=== PATIENT | female | born 1970 | race Caucasian/White ===

== ENCOUNTER 2017-10-19 15:18 | Emergency (ER) | payer BC ==
[2017-10-19 16:23] VITALS: BP 124/77
--- NOTE | 2017-10-19 16:37 | UC ---
Ear Complaint HPI - History of Current Complaint Chief Complaint: UCEye Stated Complaint: RIGHT EYE ISSUE Time Seen by Provider: 10/19/17 16:30 Hx Last Menstrual Period: NONE - Allergies/Home Medications Allergies/Adverse Reactions: Allergies Allergy/AdvReac Type Severity Reaction Status Date / Time Amoxicillin [From Augmentin] AdvReac Swelling Verified 10/19/17 16:23 Clavulanic Acid AdvReac Swelling Verified 10/19/17 16:23 [From Augmentin] Home Medications: Home Medications Pediatric Multiple Vitamins W/ [Multivitamin Plus Iron Ch 18 mg] 1 chw PO DAILY 10/19/17 [History Confirmed 10/19/17] PMH/Surg Hx/FS Hx/Imm Hx - Surgical History Surgical History: Yes Surgery Procedure, Year, and Place: hysterectomy, gallbladder removed - Family History Known Family History: Positive: None - Social History Alcohol Use: Occasionally Substance Use Type: None Smoking Status (MU): Never Smoked Tobacco - Immunization History Most Recent Tetanus Shot: 01/23/14 Physical Exam Vital Signs: Initial Vital Signs Temp 98.6 F 10/19/17 16:16 Pulse 60 10/19/17 16:16 Resp 12 10/19/17 16:16 BP 124/77 10/19/17 16:16 Pulse Ox 100 10/19/17 16:16 Ear Complaint Course/Dx - Course Course Of Treatment: hx obtained, exam performed ,meds reviewed, given abx for prophylaxic prevention - Differential Dx/Diagnosis Provider Diagnoses: chemical irritaion of the left eye Discharge - Discharge Plan Condition: Stable Disposition: HOME Patient Education Materials: [employer] [facility] (ED) Referrals: Kiran Baldwin MD [Primary Care Provider] - Additional Instructions: 1. use the cream three times a day for 3 days. 2. FOllow up with any worsening symtpoms.
== END 2017-10-19 16:40 | disposition home or self-care (01) ==
LOC: UCCORT 15:18
DX: H57.8 Other specified disorders of eye and adnexa (principal); Z90.710 Acquired absence of both cervix and uterus; Z90.49 Acquired absence of other specified parts of digestive tract; Z88.1 Allergy status to other antibiotic agents
CPT/HCPCS: 99212; G0463

== ENCOUNTER 2017-11-27 17:17 | Emergency (ER) | payer BC ==
[2017-11-27 19:34] VITALS: BP 126/75
--- NOTE | 2017-11-27 20:03 | UC ---
FLU HPI - HPI Summary HPI Summary: 47 y/o female presents to the urgent care c/o sore throat, [place], fatigue, mild sinus congestion w/ clear nasal discharge. Pain w/ swallowing is 4/10. 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 Pt denies fever, but has felt chills at times. Pt denies cough SOB, chest pain, abdominal pain, N/V/D - History of Current Complaint Chief Complaint: UCGeneralIllness Stated Complaint: HEADACHE,SORE THROAT,FATIGUE Time Seen by Provider: 11/27/17 19:29 Hx Obtained From: Patient Hx Last Menstrual Period: NONE Onset/Duration: Gradual Onset, Lasting Days - 1 day, Still Present, Worse Since - today Severity Currently: Mild Severity Initially: Moderate Pain Intensity: 4 Pain Scale Used: 0-10 Numeric Associated Signs & Symptoms: Positive: Fever, Myalgia, Sore Throat, Nasal Congestion - clear nasal discharge, Headache - Risk Factors Influenza Risk Factors: Negative - Allergy/Home Medications Allergies/Adverse Reactions: Allergies Allergy/AdvReac Type Severity Reaction Status Date / Time MS Amoxicillin AdvReac Swelling Verified 11/27/17 19:34 [From Augmentin] MS Clavulanic Acid AdvReac Swelling Verified 11/27/17 19:34 [From Augmentin] Home Medications: Home Medications busPIRone TAB* [Buspar TAB *] 15 mg PO DAILY 11/27/17 [History Confirmed ] PMH/Surg Hx/FS Hx/Imm Hx Previously Healthy: Yes Other GI/ History: Colitis Psychological History: Anxiety - Surgical History Surgical History: Yes Surgery Procedure, Year, and Place: hysterectomy, gallbladder removed - Family History Known Family History: Positive: Diabetes, Respiratory Disease - COPD Negative: Hypertension - Social History Occupation: Employed Full-time Lives: With Family Alcohol Use: Occasionally Substance Use Type: None Smoking Status (MU): Never Smoked Tobacco - Immunization History Most Recent Tetanus Shot: 01/23/14 Review of Systems Constitutional: Fever, Chills, Fatigue Skin: Negative Eyes: Negative ENT: Sore Throat, Nasal Discharge, Sinus Congestion Respiratory: Negative Cardiovascular: Negative Gastrointestinal: Negative Genitourinary: Negative Motor: Negative Neurovascular: Negative Musculoskeletal: Negative Neurological: Headache Psychological: Negative Is Patient Immunocompromised?: No All Other Systems Reviewed And Are Negative: Yes Physical Exam Triage Information Reviewed: Yes Vital Signs: Initial Vital Signs Temp 97.8 F 11/27/17 19:30 Pulse 58 11/27/17 19:30 Resp 14 11/27/17 19:30 BP 126/75 11/27/17 19:30 Pulse Ox 100 11/27/17 19:30 - Additional Comments VITAL SIGNS: Reviewed. GENERAL: Patient is a well developed and nourished female who is sitting comfortable in the examining table. Patient is not in any acute respiratory distress. HEAD AND FACE: No signs of trauma. No ecchymosis, hematomas or skull depressions. No sinus tenderness. edematous erythematous nasal mucosa with yellowish discharge, EYES: PERRLA, EOMI x 2, No injected conjunctiva, clear watery eyes, no nystagmus. No photophobia. EARS: Hearing grossly intact. Ear canals and tympanic membranes are within normal limits. MOUTH: Positive pharynx with erythema, no exudates,no palatal petechiae. no B/L tonsillar enlargement Uvula in midline. NECK: Supple, trachea is midline, Positive anterior cervical lymphadenopathy, no JVD, no carotid bruit, no c-spine tenderness, neck with full ROM. No meningeal signs, no Kernig's or brudzinskis signs. CHEST: Symmetric, no tenderness at palpation LUNGS: Clear to auscultation bilaterally. No wheezing or crackles. CVS: Regular rate and rhythm, S1 and S2 present, no murmurs or gallops appreciated. ABDOMEN: Soft, non-tender. No signs of distention. No rebound no guarding, and no masses palpated. Bowel sounds are normal. EXTREMITIES: FROM in all major joints, no edema, no cyanosis or clubbing. NEURO: Alert and oriented x 3. No acute neurological deficits. Speech is normal and follows commands. SKIN: Dry and warm Flu Course/Dx - Course Course Of Treatment: 47 y/o female presents to the urgent care c/o sore throat, [place], fatigue, mild sinus congestion w/ clear nasal discharge. Pain w/ swallowing is 4/10. 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 Pt denies fever, but has felt chills at times. Pt denies cough SOB, chest pain, abdominal pain, N/V/D. Hx obtained. Pt w/ URI on examination. Influenza A&B ordered: result: negative. Pt Rx ibuprofen PO to alleviates symptoms. Advised on hand washing. Pt advised to rest, increase fluid intake, eat well and avoid strenuous exercise. If symptoms do not improve or worsen advised to return to the urgent care or f/u with her PCP for further evaluation and treatment. Pt understood and agreed with plan of care. - Differential Dx/Diagnosis Differential Diagnosis/HQI/PQRI: Bronchitis, Influenza, Pneumonia, Upper Respiratory Infection Provider Diagnoses: 1- Upper respiratory infection Discharge - Discharge Plan Condition: Stable Disposition: HOME Prescriptions: Ibuprofen TAB* [Motrin TAB* 600 MG] 600 mg PO Q6H PRN #20 tab PRN Reason: Fever Patient Education Materials: Upper Respiratory Infection (ED) Referrals: Kiran Baldwin MD [Primary Care Provider] - If Needed Additional Instructions: 1-Please take ibuprofen PO q6-8hrs prn as instructed after meals to alleviate pain and swelling. Increase fluid intake, eat well, rest and avoid strenuous exercise 2-If symptoms do not improve or worsen please return to the urgent care or f/u with your PCP for further evaluation and treatment.
== END 2017-11-27 20:34 | disposition home or self-care (01) ==
LOC: UCCORT 17:17
DX: J06.9 Acute upper respiratory infection, unspecified (principal)
CPT/HCPCS: 87502; 99211; G0463

== ENCOUNTER 2018-02-03 07:02 | Emergency (ER) | payer BC ==
[2018-02-03 07:20] VITALS: BP 124/79
--- NOTE | 2018-02-03 07:39 | UC ---
Respiratory Complaint HPI - HPI Summary HPI Summary: cough x 1 week cough is non-productive and dry , chest congestion , + nasal congestion , pnd no fever, no chills, no sob - History of Current Complaint Chief Complaint: UCRespiratory Stated Complaint: COUGH Time Seen by Provider: 02/03/18 07:24 Hx Obtained From: Patient Hx Last Menstrual Period: NONE Onset/Duration: Gradual Onset, Lasting Weeks - 7, Still Present Timing: Constant Severity Initially: Moderate Severity Currently: Moderate Pain Intensity: 3 Character: Cough: Nonproductive Aggravating Factors: Deep Breaths Associated Signs And Symptoms: Positive: URI, Nasal Congestion. Negative: Dyspnea, Fever, Chills, Wheezing, Hemoptysis, Dizziness, Calf Pain, Calf Swelling, Edema, Hoarseness, Sinus Discomfort - Allergies/Home Medications Allergies/Adverse Reactions: Allergies Allergy/AdvReac Type Severity Reaction Status Date / Time amoxicillin [From Augmentin] Allergy Swelling Verified 02/03/18 07:24 clavulanic acid Allergy Swelling Verified 02/03/18 07:24 [From Augmentin] Home Medications: Home Medications Escitalopram Oxalate [Lexapro 20 mg] 20 mg PO DAILY 02/03/18 [History Confirmed 02/03/18] PMH/Surg Hx/FS Hx/Imm Hx Psychological History: Anxiety, Depression - Surgical History Surgical History: Yes Surgery Procedure, Year, and Place: hysterectomy, gallbladder removed - Family History Known Family History: Positive: None, Diabetes, Respiratory Disease - COPD Negative: Hypertension - Social History Alcohol Use: Rare Substance Use Type: None Smoking Status (MU): Never Smoked Tobacco - Immunization History Most Recent Tetanus Shot: 01/23/14 Review of Systems Constitutional: Negative Skin: Negative Eyes: Negative ENT: Nasal Discharge Respiratory: Cough Cardiovascular: Negative Gastrointestinal: Negative Is Patient Immunocompromised?: No All Other Systems Reviewed And Are Negative: Yes Physical Exam Triage Information Reviewed: Yes Appearance: Well-Appearing, No Pain Distress, Well-Nourished Vital Signs: Initial Vital Signs Temp 98.7 F 02/03/18 07:14 Pulse 57 02/03/18 07:14 Resp 59 02/03/18 07:14 BP 124/79 02/03/18 07:14 Pulse Ox 100 02/03/18 07:14 Vital Signs Reviewed: Yes Eyes: Positive: Conjunctiva Clear ENT: Positive: Normal ENT inspection, Hearing grossly normal, Pharynx normal Neck: Positive: Supple, Nontender, No Lymphadenopathy Respiratory: Positive: Chest non-tender, Lungs clear, Normal breath sounds Cardiovascular: Positive: RRR, No Murmur, Pulses Normal Skin Exam: Normal UC Diagnostic Evaluation - Laboratory O2 Sat by Pulse Oximetry: 100 Respiratory Course/Dx - Differential Dx/Diagnosis Provider Diagnoses: bronchitis Discharge - Sign-Out/Discharge Documenting (check all that apply): Discharge/Admit/Transfer - Discharge Plan Condition: Stable Disposition: HOME Prescriptions: Codeine Phosphate/Guaifenesin [Cheratussin AC] 10 ml PO Q8H #120 ml MDD 30 ml Patient Education Materials: Acute Bronchitis (ED) Referrals: Kiran Baldwin MD [Primary Care Provider] - If Needed - Billing Disposition and Condition Condition: STABLE Disposition: HOME
== END 2018-02-03 07:37 | disposition home or self-care (01) ==
LOC: UCCORT 07:02
DX: J40 Bronchitis, not specified as acute or chronic (principal); Z88.3 Allergy status to other anti-infective agents
CPT/HCPCS: 99212; G0463

== ENCOUNTER 2018-05-30 07:00 | Emergency (ER) | payer BC ==
[2018-05-30 07:16] VITALS: BP 111/71
--- NOTE | 2018-05-30 07:17 | UC ---
Neck Pain HPI - HPI Summary HPI Summary: The patient is a 47-year-old female that presents here for evaluation of left lateral neck pain. She states that she has had trouble with her neck for years. She remembers missing school as a young teenager due to neck pain. He denies any history of injuries. Her neck pain is always located on the left side in the trapezius. When her pain acts up she has decreased range of motion. She has never been seen by a physician for neck pain. She states over the past 5-6 weeks for neck pain has been worsening. She hasn't appointment to see her primary care physician Friday of next week. Her pain got progressively worse the last few days and she decided to get checked here. In addition to the trapezius pain she has pain now shooting down towards her left scapula. She denies any numbness and tingling in her arms. The pain does not radiate down her arms. She has taken some ibuprofen for her symptoms. This causes mild improvement of her symptoms - History of Current Complaint Chief Complaint: UCUpperExtremity Stated Complaint: NECK COMPLAINT Time Seen by Provider: 05/30/18 07:11 Hx Obtained From: Patient Hx Last Menstrual Period: NONE Onset/Duration Of Injury/Symptoms: Weeks Mechanism Of Injury: No Known Trauma Timing: Intermittent Episodes - weeks Onset/Duration: Gradual Onset, Worse Since - 5-6 weeks Severity: Moderate Pain Intensity: 7 Pain Scale Used: 0-10 Numeric Location: Discrete At: - left trap Character: Aching, Stiff, Spasmotic, Throbbing Aggravating Factors: Position Alleviating Factors: Position, OTC Meds Associated Signs & Symptoms: Positive: Negative Head: 1 - pain here 2 - radiates here - Allergies/Home Medications Allergies/Adverse Reactions: Allergies Allergy/AdvReac Type Severity Reaction Status Date / Time amoxicillin [From Augmentin] Allergy Swelling Verified 05/30/18 07:08 clavulanic acid Allergy Swelling Verified 05/30/18 07:08 [From Augmentin] PMH/Surg Hx/FS Hx/Imm Hx Previously Healthy: Yes - Surgical History Surgical History: Yes Surgery Procedure, Year, and Place: hysterectomy, gallbladder removed - Family History Known Family History: Positive: Diabetes, Respiratory Disease - COPD Negative: Hypertension - Social History Alcohol Use: Rare Substance Use Type: None Smoking Status (MU): Never Smoked Tobacco - Immunization History Most Recent Tetanus Shot: 01/23/14 Review Of Systems Constitutional: Positive: Negative Skin: Positive: Negative Eyes: Positive: Negative ENT: Positive: Negative Respiratory: Positive: Negative Cardiovascular: Positive: Negative Gastrointestinal: Positive: Negative Genitourinary: Positive: Negative Musculoskeletal: Positive: Arthralgia, Myalgia Neurological: Positive: Negative Psychological: Positive: Negative All Other Systems Reviewed And Are Negative: Yes Physical Exam Triage Information Reviewed: Yes Appearance: Well-Appearing, No Pain Distress, Well-Nourished Vital Signs: Initial Vital Signs Temp 98.1 F 05/30/18 07:09 Pulse 60 05/30/18 07:09 Resp 16 05/30/18 07:09 BP 111/71 05/30/18 07:09 Pulse Ox 100 05/30/18 07:09 Vital Signs Reviewed: Yes Eyes: Positive: Conjunctiva Clear ENT: Positive: Hearing grossly normal. Negative: Pharyngeal erythema, Nasal congestion, Nasal drainage, Trismus, Muffled voice, Hoarse voice Neck: Positive: No Lymphadenopathy. Negative: Supple, Nontender Respiratory: Positive: Lungs clear, Normal breath sounds, No respiratory distress, No accessory muscle use Cardiovascular: Positive: RRR, No Murmur Abdomen Description: Positive: Nontender Musculoskeletal: Positive: ROM Intact, No Edema Neurological: Positive: Alert Psychological Exam: Normal Skin Exam: Normal Diagnostics - Radiology No standard instances Xray Interpretation: No Acute Changes - MILD DEGENERATIVE DISC DISEASE AND OSTEOARTHRITIS MOST PRONOUNCED AT C6-C7. Radiology Interpretation Completed By: Radiologist Neck Pain Course/Dx - Differential Dx/Diagnosis Provider Diagnoses: cervical/left trapzius strain Discharge - Sign-Out/Discharge Documenting (check all that apply): Patient Departure - Discharge Plan Condition: Stable Disposition: HOME Patient Education Materials: Cervical Strain (ED), Soft Cervical Collar (ED) Referrals: Kiran Baldwin MD [Primary Care Provider] - As Soon As Possible Additional Instructions: ibuprofen 200mg 3 pills upto 4x day with food as needed soft cervical collar PT consult - Billing Disposition and Condition Condition: STABLE Disposition: Home
[2018-05-30] MEDS ORDERED: Ibuprofen TAB* 600 MG PO ONE (07:26)
--- NOTE | 2018-05-30 07:49 | RAD ---
HISTORY: acute worsening of chronic neck pain COMPARISONS: None VIEWS: 5, Frontal, lateral, open-mouth odontoid, and bilateral oblique views of the cervical spine. FINDINGS: The cervical spine is visualized from the skull base through T1. ALIGNMENT: The alignment is normal. VERTEBRAL BODIES: The odontoid process is intact. The atlantoaxial intervals are symmetric. There is mild anterolateral marginal osteophyte formation at C6-C7. JOINTS: There is mild uncovertebral and facet osteoarthritis, without osseous neural foraminal narrowing on the oblique views. INTERVERTEBRAL DISCS: There is diffuse loss of intervertebral disc height, most pronounced at C6-C7.. SOFT TISSUE: The prevertebral soft tissues are normal. OTHER: The skull base is normal. The lung apices are clear. IMPRESSION: MILD DEGENERATIVE DISC DISEASE AND OSTEOARTHRITIS MOST PRONOUNCED AT C6-C7.
== END 2018-05-30 08:06 | disposition home or self-care (01) ==
LOC: UCCORT 07:00
DX: S46.812A Strain of other muscles, fascia and tendons at shoulder and upper arm level, left arm, initial encounter (principal); S16.1XXA Strain of muscle, fascia and tendon at neck level, initial encounter; X58.XXXA Exposure to other specified factors, initial encounter; Y93.9 Activity, unspecified; Y92.9 Unspecified place or not applicable; Z88.0 Allergy status to penicillin; Z88.8 Allergy status to other drugs, medicaments and biological substances
CPT/HCPCS: 72050; 99213; A9270-GY; G0463

== ENCOUNTER 2018-06-25 17:22 | Emergency (ER) | payer BC ==
--- OUTSIDE RECORDS SUMMARY | 2018-06-25 17:28 | XMS REPORT ---
:1970 External Reference #:[id number] Author Organization [facility] Address [address] [place] [address] Phone [phone] Care Team Providers Name Role Phone HCP given Primary Care Physician Unavailable Payers Type Date Identification Numbers Payment Provider Subscriber Commercial Effective: Policy Number: Yulisa Stiles 2017 [id number] Ind/Ppo/Hmo/Pos Group Name: [id number] [address] [address] PayID: [id number] ALINA Adames [id number] Problems Date Description Provider Status Onset: 04/16/2011 Dysthymia Kiran Baldwin M.D. Active Onset: 07/04/2015 Dysthymic disorder Kiran Baldwin M.D. Active Onset: 07/04/2015 Anxiety state Kiran Baldwin M.D. 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 Cigarette Use Tobacco Of Any Kind Denies Use Cigarette Use Denies Cigarette Use ETOH Use Rare Alcohol Use Recreational Drug Use Never Used Drugs Smoking Patient has never smoked Daily Caffeine Consumes on average 2 cups of coffee per day Daily Caffeine Consumes on average 1 soda per day Sun Exposure Minimum - moderate amount of sun exposure. Uses sunscreen Seat Belt/Car Seat Always uses a seat belt Currently Active The patient is currently not sexually active Contraceptive Methods Past methods of control used include abstinence Age 1st [place] First intercourse was at age 17 # Partners in a Lifetime The patient has had 3 sexual partners Additional Info Sexual preference is men Allergies, Adverse Reactions, Alerts Date Description Reaction Status Severity Comments 11/30/2008 NKDA active Medications Medication Date Status Form Strength Qnty SIG Indications Ordering Provider PT For Neck 06/02/ Active please M54.2 Denny Pain 2017 evaluate and lety Beck M.D. instruct in hep, modalities prn. Clonazepam 03/04/ Active Tablets 0.5mg 30tabs 2-1 by F41.9 Denny2016 mouth up to Kiran, three times M.D. a day as needed for anxiety Flintstones 08/18/ Active Chewtabs daily Unknown Plus Iron 2015 Lexapro 04/22/ Active Tablets 20mg 90tabs 2 tab by F06.4 Denny2015 mouth every Kiran, day for M.D. mood; if needed may increase back to 1 tab daily F34.1 F41.9 Buspirone HCL 01/05 Hx Tablets 7.5m 180t take 1 tablet by Jaden Baldwin, g abs mouth twice a day for 9 Kiran, - anxiety M.D. 04/12 Buspirone HCL 10/27 Hx Tablets 5mg 90ta 1 by mouth twice a F4. Denny bs day for anxiety; 9 Kiran, - increase to 1.5 pills M.D. 01/05 2x/day after 2 Amitriptyline HCL 08/02 Hx Tablets 10mg 45ta Take One Tablet By K52. Bennie Puentes bs Mouth AT Bedtime for 839 Kayla, - colitis M.D. 08/19 Neomycin/Polymyxin 08/02 Hx Solution 3.5- 10ml 5 drops right ear H60. Bennie Puentes /Hydrocortisone /2016 1000 three times a day for 11 Kayla, (Otic) - 0-1 about a week M.D. 08/09 Hydroquinone/Treti 07/11 Hx Cream 4%/0 45gm apply nightly to L81. Silcoff, noin/Fluocinolone /2015 .05% involved skin on face 1 Blanche Beck - /0.0 for 8-24wks; for M.D. 04/22 1% hyperpigmentation /2015 Fluticasone 09/13 Hx Suspension 50mc 16gm 2 sprays into each J31. Silcoff, Propionate /2014 g/Ac nostril once daily as 0 Yazmin Beck needed for nasal M.D. 04/24 congestion Bupropion HCL ER 06/06 Hx Tablets ER 24HR 150m 90ta take 1 tablet every F34. Silcoff, (XL) /2015 g bs morning; for mood 1 Yazmin Beck M.D. 08/19 F41.9 Probiotic & 02/23/2014 - Hx Capsules 30caps 1 by mouth Denny, Acidophilus 01/13/2015 every day Elizabeth Beck Formula Amitriptyline HCL 06/03/2011 - Hx Tablets 10mg 90tabs Take One 787. Silcoff, 01/13/2015 Tablet By 91 Elizabeth Beck Mouth AT Bedtime For Chronic Diarrhea 558.9 Fluticasone 10/16/2010 - Hx Suspension 50mcg/Act 16gm 2 sprays 381.81 Silcoff, Propionate 04/15/2011 into each Kiran, nostril qd M.D. Lexapro 06/17/2010 - Hx Tablets 20mg 90tabs Take One F06.4 Silcoff, 04/22/2016 Tablet By Teofilo Beck MAzul Every Day; for mood F34.1 Lexapro 04/13/2010 - Hx Tablets 20mg 1/2 po qd 293.84 Kiran Baldwin, 06/17/2010 M.D. 300.4 Lexapro 09/13/2009 - Hx Tablets 20mg 90tabs 1 po qd 293.84 Kiran Baldwin, 04/13/2010 M.D. 300.4 Tetracycline HCL 07/17/2008 - Hx Capsules 500mg 120caps 1 po qid 706.1 Silcoff, 11/30/2008 Elizabeth Beck Clindamycin 06/01/2008 - Hx Gel 1% 25ml Apply To 706.1 Silcoff, Phosphate 07/17/2008 Affected Ra Beck On M.D. Face qd Lexapro 11/18/2005 - Hx Tabs 10mg 90tabs Take 1 293.84 Silcoff, 09/13/2009 Tablet By Kiran Mouth Every M.D. Day 300.4 Medications Administered in Office Medication Date Status Form Strength Qnty SIG Indications Ordering Provider H1N1 Swine Flu Administered Injection Silcoff, Vaccine 010 Elizabeth Beck Immunizations CPT Code Status Date Vaccine Lot # U-Flu Given 08/01/2017 Influenza,Unspecified 28965 Given 07/19/2016 Flu, Split Virus 3Yrs [id number] Given 06/06/2015 Influenza Virus Vaccine, Quadrivalent, Split, [id number] Preservative Free 16001 Given 07/15/2014 Flu, Split Virus 3Yrs 31274 Given 01/23/2014 Adacel or Boostrix, TDaP 00135 Given 07/16/2013 Flu, Split Virus 3Yrs 60071 Given 09/08/2012 Flu, Split Virus 3Yrs [id number] 72652 Given 09/05/2010 Flu, Split Virus 3Yrs [id number] 42634 Given 05/23/2006 Adacel or Boostrix, TDaP [id number] U-Flu Given Unknown Influenza,Unspecified Vital Signs Date Vital Result Comment 06/02/2018 BP Systolic 118 mmHg BP Diastolic 70 mmHg Height 62.50 inches 5'2.50" Weight 135.00 lb BMI (Body Mass Index) 24.3 kg/m2 04/13/2018 BP Systolic 120 mmHg BP Diastolic 70 mmHg Weight 134.00 lb 01/05/2018 BP Systolic 102 mmHg BP Diastolic 68 mmHg Height 62.75 inches 5'2.75" Weight 132.00 lb BMI (Body Mass Index) 23.6 kg/m2 10/27/2017 BP Systolic 128 mmHg BP Diastolic 80 mmHg Weight 131.00 lb 08/04/2017 BP Systolic 126 mmHg BP Diastolic 70 mmHg Weight 130.00 lb 04/25/2017 BP Systolic 122 mmHg BP Diastolic 82 mmHg Height 63 inches 5'3" Weight 121.00 lb BMI (Body Mass Index) 21.4 kg/m2 03/04/2017 BP Systolic 142 mmHg BP Diastolic 80 mmHg Weight 133.00 lb 10/23/2016 BP Systolic 116 mmHg BP Diastolic 60 mmHg Height 63 inches 5'3" Weight 130.50 lb BMI (Body Mass Index) 23.1 kg/m2 08/19/2016 BP Systolic 120 mmHg BP Diastolic 70 mmHg Body Temperature 98.2 F Weight 128.00 lb w/shoes 08/02/2016 BP Systolic 108 mmHg BP Diastolic 70 mmHg Weight 128.00 lb with sneakers 04/22/2016 BP Systolic 110 mmHg BP Diastolic 70 mmHg Height 63 inches 5'3" Weight 125.00 lb BMI (Body Mass Index) 22.1 kg/m2 02/13/2016 BP Systolic 110 mmHg BP Diastolic 70 mmHg Body Temperature 98.2 F Weight 127.00 lb with shoes 12/27/2015 BP Systolic 122 mmHg BP Diastolic 76 mmHg Body Temperature 100.3 F Weight 126.00 lb 10/23/2015 BP Systolic 128 mmHg BP Diastolic 88 mmHg Height 62.5 inches 5'2.50" Weight 125.00 lb BMI (Body Mass Index) 22.5 kg/m2 09/13/2015 BP Systolic 104 mmHg BP Diastolic 72 mmHg Weight 127.00 lb 07/04/2015 BP Systolic 120 mmHg BP Diastolic 78 mmHg Weight 128.00 lb 06/06/2015 BP Systolic 112 mmHg BP Diastolic 64 mmHg Height 62.75 inches 5'2.75" Weight 126.00 lb BMI (Body Mass Index) 22.5 kg/m2 04/21/2015 BP Systolic 110 mmHg BP Diastolic 70 mmHg Height 64 inches 5'4" w/shoes 10/21/2014 BP Systolic 116 mmHg BP Diastolic 72 mmHg Height 63 inches 5'3" Weight 123.00 lb BMI (Body Mass Index) 21.8 kg/m2 04/20/2014 BP Systolic 104 mmHg BP Diastolic 80 mmHg Height 62.50 inches 5'2.50" Weight 120.00 lb BMI (Body Mass Index) 21.6 kg/m2 10/20/2013 BP Systolic 118 mmHg BP Diastolic 72 mmHg Weight 125.00 lb 04/14/2013 BP Systolic 110 mmHg BP Diastolic 74 mmHg Height 63 inches 5'3" Weight 118.00 lb BMI (Body Mass Index) 20.9 kg/m2 03/23/2013 BP Systolic 116 mmHg BP Diastolic 70 mmHg Weight 119.00 lb 10/14/2012 BP Systolic 110 mmHg BP Diastolic 78 mmHg Height 63 inches 5'3" Weight 133.00 lb BMI (Body Mass Index) 23.6 kg/m2 04/10/2012 BP Systolic 120 mmHg BP Diastolic 68 mmHg Height 63 inches 5'3" Weight 129.00 lb BMI (Body Mass Index) 22.8 kg/m2 10/08/2011 BP Systolic 114 mmHg BP Diastolic 60 mmHg Height 63.25 inches 5'3.25" Weight 128.00 lb BMI (Body Mass Index) 22.5 kg/m2 Last Menstrual Period 0 07/01/2011 BP Systolic 118 mmHg BP Diastolic 78 mmHg Body Temperature 98.2 F Weight 128.00 lb 06/03/2011 BP Systolic 106 mmHg BP Diastolic 78 mmHg Heart Rate 70 /min reg Respiratory Rate 12 /min not laboured Body Temperature 97.9 F Weight 124.00 lb 04/16/2011 BP Systolic 108 mmHg BP Diastolic 62 mmHg Weight 125.00 lb Last Menstrual Period 0 04/04/2011 BP Systolic 118 mmHg BP Diastolic 80 mmHg Body Temperature 98.3 F Weight 127.00 lb Last Menstrual Period 0 01/11/2011 BP Systolic 112 mmHg BP Diastolic 63 mmHg Heart Rate 63 /min Body Temperature 98.5 F Height 63 inches 5'3" Weight 126.00 lb BMI (Body Mass Index) 22.3 kg/m2 Last Menstrual Period 0 10/16/2010 BP Systolic 116 mmHg BP Diastolic 74 mmHg Weight 125.00 lb Last Menstrual Period 0 04/13/2010 BP Systolic 112 mmHg BP Diastolic 70 mmHg Height 63 inches 5'3" Weight 126.00 lb BMI (Body Mass Index) 22.3 kg/m2 10/25/2009 BP Systolic 102 mmHg BP Diastolic 64 mmHg Weight 122.00 lb 09/13/2009 BP Systolic 94 mmHg BP Diastolic 70 mmHg Weight 123.00 lb Last Menstrual Period 0 05/30/2009 BP Systolic 110 mmHg BP Diastolic 62 mmHg Weight 122.00 lb 11/30/2008 BP Systolic 98 mmHg BP Diastolic 60 mmHg Weight 120.00 lb 06/01/2008 BP Systolic 110 mmHg BP Diastolic 60 mmHg Weight 119.00 lb BMI (Body Mass Index) 21.1 kg/m2 12/02/2007 BP Systolic 124 mmHg BP Diastolic 54 mmHg Height 63 inches 5'3" Weight 122.50 lb BMI (Body Mass Index) 21.7 kg/m2 05/29/2007 BP Systolic 96 mmHg BP Diastolic 60 mmHg Height 63 inches 5'3" Weight 116.00 lb BMI (Body Mass Index) 20.5 kg/m2 Last Menstrual Period 0 11/28/2006 BP Systolic 112 mmHg BP Diastolic 60 mmHg Height 63 inches 5'3" Weight 123.00 lb BMI (Body Mass Index) 21.8 kg/m2 07/25/2006 BP Systolic 100 mmHg BP Diastolic 70 mmHg 06/25/2006 BP Systolic 106 mmHg BP Diastolic 60 mmHg 05/23/2006 BP Systolic 104 mmHg BP Diastolic 64 mmHg Height 63 inches 5'3" Weight 117.00 lb BMI (Body Mass Index) 20.7 kg/m2 03/26/2006 BP Systolic 110 mmHg BP Diastolic 64 mmHg Body Temperature 98.8 F Height 63 inches 5'3" Weight 121.00 lb BMI (Body Mass Index) 21.4 kg/m2 03/18/2006 BP Systolic 104 mmHg BP Diastolic 66 mmHg Height 63 inches 5'3" Weight 119.00 lb BMI (Body Mass Index) 21.1 kg/m2 01/10/2006 Height 63 inches 5'3" 12/13/2005 BP Systolic 114 mmHg BP Diastolic 70 mmHg Height 63 inches 5'3" Weight 117.00 lb BMI (Body Mass Index) 20.7 kg/m2 11/18/2005 BP Systolic 110 mmHg BP Diastolic 70 mmHg Height 63 inches 5'3" Weight 118.00 lb BMI (Body Mass Index) 20.9 kg/m2 07/22/2005 BP Systolic 100 mmHg BP Diastolic 60 mmHg Weight 117.50 lb 09/05/2003 Body Temperature 99.7 F Weight 119.00 lb Results Test Date Test Result H/L Range Note Rapid Influenza A & B 11/27/2017 Influenza A Molecular NEGATIVE Negative 1 Molecular Influenza B Molecular NEGATIVE Negative CBC Auto Diff 08/05/2017 White Blood Count 6.0 10^3/uL 3.5-10.8 Red Blood Count 4.20 10^6/uL 4.0-5.4 Hemoglobin 11.8 g/dL Low 12.0-16.0 Hematocrit 35 % 35-47 Mean Corpuscular Volume 84 fL 80-97 Mean Corpuscular Hemoglobin 28 pg 27-31 Mean Corpuscular HGB Conc 33 g/dL 31-36 Red Cell Distribution Width 13 % 10.5-15 Platelet Count 259 10^3/uL 150-450 Mean Platelet Volume 8 um3 7.4-10.4 Abs Neutrophils 2.9 10^3/uL 1.5-7.7 Abs Lymphocytes 2.3 10^3/uL 1.0-4.8 Abs Monocytes 0.4 10^3/uL 0-0.8 Abs Eosinophils 0.2 10^3/uL 0-0.6 Abs Basophils 0.1 10^3/uL 0-0.2 Abs Nucleated RBC 0 10^3/uL Granulocyte % 48.9 % 38-83 Lymphocyte % 38.8 % 25-47 Monocyte % 7.3 % 1-9 Eosinophil % 3.5 % 0-6 Basophil % 1.5 % 0-2 Nucleated Red Blood Cells % 0 Laboratory test finding 08/05/2017 Amylase 40 U/L 29-103 Lipase 27 U/L 11.0-82.0 Comp Metabolic Panel 08/05/2017 Sodium 139 mmol/L 133-145 Potassium 4.0 mmol/L 3.5-5.0 Chloride 104 mmol/L 101-111 Co2 Carbon Dioxide 28 mmol/L 22-32 Anion Gap 7 mmol/L 2-11 Glucose 105 mg/dL High 70-100 Blood Urea Nitrogen 12 mg/dL 6-24 Creatinine 0.76 mg/dL 0.51-0.95 BUN/Creatinine Ratio 15.8 8-20 Calcium 9.3 mg/dL 8.6-10.3 Total Protein 6.7 g/dL 6.4-8.9 Albumin 4.1 g/dL 3.2-5.2 Globulin 2.6 g/dL 2-4 Albumin/Globulin Ratio 1.6 1-3 Total Bilirubin 0.20 mg/dL 0.2-1.0 Alkaline Phosphatase 53 U/L 34-104 Alt 21 U/L 7-52 Ast 22 U/L 13-39 Egfr Non- 81.6 >60 Egfr 104.9 >60 2 CBC Auto Diff 10/23/2016 White Blood Count 5.8 10^3/uL 3.5-10.8 Red Blood Count 4.57 10^6/uL 4.0-5.4 Hemoglobin 12.5 g/dL 12.0-16.0 Hematocrit 39 % 35-47 Mean Corpuscular Volume 85 fL 80-97 Mean Corpuscular Hemoglobin 27 pg 27-31 Mean Corpuscular HGB Conc 32 g/dL 31-36 Red Cell Distribution Width 13 % 10.5-15 Platelet Count 234 10^3/uL 150-450 Mean Platelet Volume 9 um3 7.4-10.4 Abs Neutrophils 3.1 10^3/uL 1.5-7.7 Abs Lymphocytes 1.9 10^3/uL 1.0-4.8 Abs Monocytes 0.6 10^3/uL 0-0.8 Abs Eosinophils 0.1 10^3/uL 0-0.6 Abs Basophils 0.1 10^3/uL 0-0.2 Abs Nucleated RBC 0 10^3/uL Granulocyte % 53.8 % 38-83 Lymphocyte % 32.8 % 25-47 Monocyte % 9.5 % High 1-9 Eosinophil % 2.6 % 0-6 Basophil % 1.3 % 0-2 Nucleated Red Blood Cells % 0 Iron & Iron Binding Capacity 10/23/2016 Iron 134 g/dL 50-212 Unsaturated Iron Binding 213 g/dL Total Iron Binding Capacity 347 g/dL 250-450 % Iron Saturation 39 % 15-55 Laboratory test finding 10/23/2016 Ferritin 40.9 ng/mL 11-307 Vitamin B12 324 pg/mL 180-914 3 Laboratory test finding 11/05/2012 Monospot Negative Negative 4 Bryant Romero Comprehensive 11/05/2012 Ebv Capsid Ag IgG Ab Positive Negative Ebv Capsid Ag IgM Ab Negative Negative Bryant-Romero Nuclear Antigen Equivocal Negative Bryant-Romero Virus Interp See Comment 5 Laboratory test finding 10/24/2011 Colonic Mucosa/Polyp Biopsy See Note 6, 7 Smear For WBC'S 06/04/2011 Smear For WBC'S NONE SEEN Smear Source: STOOL Ova + Parasite Antigen Screen 06/04/2011 Cryptosporidium Specific Ag See Note 8 Giardia Specific Antigen See Note 9 Stool Culture 06/04/2011 Stool Culture See Note 10 Shiga Toxin 1 See Note 11 Shiga Toxin 2 See Note 12 Laboratory test finding 06/03/2011 TSH 1.42 MIU/ML 0.34-5.60 Comp Metabolic Panel 06/03/2011 Sodium 138 mmol/L 135-145 Potassium 3.8 mmol/L 3.5-5.0 Chloride 105 mmol/L 101-111 Co2 (Carbon Dioxide) 27.0 mmol/L 22-32 Anion Gap 6.0 mmol/L 2-11 13 Glucose 78 mg/dL 70-100 BUN 8 mg/dL 6-24 Creatinine 0.8 mg/dL 0.50-1.40 One Over Creatinine 1.25 BUN/Creatinine Ratio 10.0 8-20 Calcium 8.9 mg/dL 8.1-9.9 Total Protein 5.7 GM/DL Low 6.2-8.1 Albumin 4.0 GM/DL 3.6-5.4 Globulin 1.7 GM/DL Low 2-4 Albumin/Globulin Ratio 2.4 1-3 Bilirubin Total 0.9 mg/dL 0.4-1.5 14 Alkaline Phosphatase 55 U/L 30-110 Alt (SGPT) 19 U/L 14-54 Ast (Sgot) 27 U/L 12-42 eGFR Non- 79.0 > 60 eGFR 101.7 > 60 15 CBC Auto Diff 06/03/2011 White Blood Count 4.8 CUMM 4.8-10.8 Red Cell Count 4.11 CUMM Low 4.2-5.4 Hemoglobin 11.7 g/dL Low 12.0-16.0 Hematocrit 35 % 35-47 Mean Corpuscular Volume 85 um3 79-97 Mean Corpuscular Hemoglob 29 pg 27-31 Mean Corpuscular HGB Cone 34 g/dL 32-36 Redcell Distribution WDTH 12 % 10.5-15 Platelet Count 231 CUMM 150-450 Mean Platelet Volume 9.0 um3 7.4-10.4 Gran % 48.8 % 38-83 Lymph % 38.2 % 25-47 Mononuclear % 9.4 % High 1-9 Eosinophil % 2.7 % 0-6 Basophil % 0.9 % 0-2 Abs Lymphs 1.8 1.0-4.8 Abs Mononuclear 0.5 0-0.8 Absolute Neutrophil Count 2.3 1.5-7.7 Abs Eosinophils 0.1 0-0.6 Abs Basophils 0 0-0.2 CBC No Diff 02/21/2011 White Blood Count 6.5 CUMM 4.8-10.8 Red Cell Count 4.21 CUMM 4.2-5.4 Hemoglobin 11.8 g/dL Low 12.0-16.0 Hematocrit 36 % 35-47 Mean Corpuscular Volume 86 um3 79-97 Mean Corpuscular Hemoglob 28 pg 27-31 Mean Corpuscular HGB Cone 33 g/dL 32-36 Redcell Distribution WDTH 12 % 10.5-15 Platelet Count 241 CUMM 150-450 Mean Platelet Volume 9.3 um3 7.4-10.4 Comp Metabolic Panel 02/21/2011 Sodium 137 mmol/L 135-145 Potassium 3.9 mmol/L 3.5-5.0 Chloride 103 mmol/L 101-111 Co2 (Carbon Dioxide) 28.0 mmol/L 22-32 Anion Gap 6.0 mmol/L 2-11 16 Glucose 81 mg/dL 70-100 BUN 6 mg/dL 6-24 Creatinine 0.70 mg/dL 0.50-1.40 One Over Creatinine 1.40 BUN/Creatinine Ratio 8.6 8-20 Calcium 9.2 mg/dL 8.1-9.9 Total Protein 6.8 GM/DL 6.2-8.1 Albumin 4.0 GM/DL 3.6-5.4 Globulin 2.8 GM/DL 2-4 Albumin/Globulin Ratio 1.4 1-3 Bilirubin Total 0.5 mg/dL 0.4-1.5 17 Alkaline Phosphatase 54 U/L 30-110 Alt (SGPT) 17 U/L 14-54 Ast (Sgot) 22 U/L 12-42 eGFR Non- 92.2 > 60 eGFR 118.6 > 60 18 Urine Culture & Sensitivi 02/21/2011 Urine Culture Sensitivi NG 19 Throat-Beta Strept 12/28/2009 Throat-Beta Strep Culture NF 20 Throat-Beta Strep 08/04/2009 Throat-Beta Strep Culture NF 21 Lipid Profile 07/09/2009 Triglyceride 65 mg/dL 40-200 (Trig/Chol/HDL) Cholesterol 156 mg/dL Less Than 200 22 High Density Lipoprotein 44 mg/dL 40-60 23 Cholesterol/HDL Ratio 3.55 AVERAGE 1-4.44 Low Density Lipoprotein 99 mg/dL Less Than 100 24 Laboratory test finding 03/02/2008 Throat-Beta Strep Culture NGNBS 25 Throat-Beta Strep Culture NGNBS 26 Ua Inhouse 03/27/2006 Ua Glucose NEG Ua Bilirubin NEG Ua Ketones NEG Ua Specific [place] 1.000 Ua Blood NEG Ua PH 5.0 Ua Protein NEG Ua Urobilinogen NEG Ua Nitrite NEG Ua Leukocytes NEG Laboratory test finding 03/27/2006 Urine Microscopic NEG Inhouse Laboratory test finding 11/18/2005 TSH 2.07 MIU/ML 0.34-5.60 CBC With Manual Diff 11/18/2005 White Blood Count 7.8 CUMM 4.8-10.8 Hematocrit 36 % 35-47 Hemoglobin 12.2 g/dL 12.0-16.0 Mean Corpuscular HGB Cone 34 g/dL 32-36 Mean Corpuscular Hemoglob 28 pg 27-31 Mean Corpuscular Volume 84 um3 79-97 Mean Platelet Volume 9.8 um3 7.4-10.4 Platelet Count 257 CUMM 150-450 Polysegmented Neutrophil 62 % 38-83 Red Cell Count 4.31 CUMM 4.2-5.4 Redcell Distribution WDTH 13 % 10.5-15 Absolute Neutrophil Count 4.8 Atypical Lymph 1 % 0-6 Anisocytosis SLIGHT Eosenophil 3 % 0-6 Lymphocyte 27 % 5-47 Monocyte 7 % 0-13 Basic Metabolic Panel 11/18/2005 One Over Creatinine 1.25 Anion Gap 7 mmol/L 2-11 27 BUN 13 mg/dL 6-24 Calcium 9.3 mg/dL 8.7-10.2 Chloride 104 mmol/L 101-111 Co2 (Carbon Dioxide) 27 mmol/L 22-32 Glucose 65 mg/dL Low 70-105 Potassium 4.5 mmol/L 3.5-5.0 Sodium 138 mmol/L 135-145 BUN/Creatinine Ratio 16.3 8-20 Creatinine 0.8 mg/dL 0.5-1.4 1 Casing Flusher: [id number] 2 Because ethnic data is not always readily available, this report includes an eGFR for both -Americans and non- Americans. The National Kidney Disease Education Program (NKDEP) does not endorse the use of the MDRD equation for patients that are not between the ages of 18 and 70, are , have extremes of body size, muscle mass, or nutritional status, or are non- or non-. According to the National Kidney Foundation, irrespective of diagnosis, the stage of the disease is based on the level of kidney function: Stage Description GFR(mL/min/1.73 m(2)) 1 Kidney damage with normal or decreased GFR 90 2 Kidney damage with mild decrease in GFR 60-89 3 Moderate decrease in GFR 30-59 4 Severe decrease in GFR 15-29 5 Kidney failure <15 (or dialysis) 3 Normal Range 180 to 914 Indeterminate Range 145 to 180 Deficient Range <145 4 Y 5 The detection of only anti-VCA IgG should be interpreted with caution in immunocompromised patients, as this population may demonstrate diminishing or undetectable levels of anti-EBNA IgG antibodies. Recommend follow-up testing in 10-14 days if clinically indicated. In most populations, at least 90% of the adult population will have been infected with EBV sometime in the past and therefore, will be positive for anti-VCA/IgG and anti- EBNA. Antibodies to EBNA develop 6-8 weeks after primary infection and remain present for life. Presence of VCA/ IgM antibodies indicates recent primary infection with EBV. Test Performed by: [place] [address] Sueding Machine Tender: Miguel Israel III, M.D. 6 OPERATION/PROCEDURE Colonoscopy DIAGNOSIS: "RANDOM COLON BIOPSIES": RARE FRAGMENTS DEMONSTRATING COLITIS, COMPATIBLE WITH MICROSCOPIC COLITIS. SEE COMMENT. WYS/clf INTERPRETATION COMMENT The increased lymphocytic interstitial population is supportive of microscopic colitis, in the appropriate clinical context. GROSS "RANDOM COLON BIOPSIES". The specimen is received in an appropriately labeled container. This contains five rounded pink colored pieces of soft tissue measuring up to 0.3 cm. or smaller; filtered and submitted in toto within a single cassette. WS/clf MICROSCOPIC Sections reveal colonic mucosa with well-oriented colonic crypts, with increased crypt mitotic activity. The stroma and mucosa contain an increased degree of eosinophils, lymphoplasmacytic infiltration, and edema. PRE OPERATIVE DIAGNOSIS Anemia, diarrhea REVIEW CODE CODE: I BENNIE Levine MD 10/25/11 1401 7 10/26/11 (Sat Eliseo 14) 08:46 AM KIRAN HIDALGOFF MICROSCOPIC (LYMPHOCYTIC) COLITIS 8 NEGATIVE FOR CRYPTOSPORIDIUM SPECIFIC ANTIGEN 9 NEGATIVE FOR GIARDIA SPECIFIC ANTIGEN. The specimen will be held for 5 days. Additional testing may be performed upon request if the antigen tests are negative, and the patient is still symptomatic or has traveled to an endemic region. 10 Organism 1 ! NO ENTERIC PATHOGENS ISOLATED . ! ................................................... NOTE: ! INCLUDES TESTING FOR SALMONELLA, SHIGELLA, AEROMONAS, . ! PLESIOMONAS, CAMPYLOBACTER, AND E. COLI 0157:H7 . ! ................................................... . ! YERSINIA AND VIBRIO ARE NOT ROUTINELY SCREENED FOR AND . ! SHOULD BE REQUESTED SEPARATELY 11 SHIGA TOXIN 1 NOT DETECTED 12 SHIGA TOXIN 2 NOT DETECTED 13 Anion gap measurement may be of limited value in the presence of any alkalosis, especially in a combined acid base disorder. . 14 A metabolite of Naproxen, O-desmethylnaproxen, has been shown to interfere with the Jendrassik-Nik method for measuring total bilirubin. Samples from patients who have taken Naproxen have shown spurious elevation in total bilirubin levels. 15 Because ethnic data is not always readily available, this report includes an eGFR for both -Americans and non- Americans. The National Kidney Disease Education Program (NKDEP) does not endorse the use of the MDRD equation for patients that are not between the ages of 18 and 70, are , have extremes of body size, muscle mass, or nutritional status, or are non- or non-. According to the National Kidney Foundation, irrespective of diagnosis, the stage of the disease is based on the level of kidney function: Stage Description GFR(mL/min/1.73 m(2)) 1 Kidney damage with normal or decreased GFR 90 2 Kidney damage with mild decrease in GFR 60-89 3 Moderate decrease in GFR 30-59 4 Severe decrease in GFR 15-29 5 Kidney failure <15 (or dialysis) 16 Anion gap measurement may be of limited value in the presence of any alkalosis, especially in a combined acid base disorder. . 17 A metabolite of Naproxen, O-desmethylnaproxen, has been shown to interfere with the Jendrassik-Nik method for measuring total bilirubin. Samples from patients who have taken Naproxen have shown spurious elevation in total bilirubin levels. 18 Because ethnic data is not always readily available, this report includes an eGFR for both -Americans and non- Americans. The National Kidney Disease Education Program (NKDEP) does not endorse the use of the MDRD equation for patients that are not between the ages of 18 and 70, are , have extremes of body size, muscle mass, or nutritional status, or are non- or non-. According to the National Kidney Foundation, irrespective of diagnosis, the stage of the disease is based on the level of kidney function: Stage Description GFR(mL/min/1.73 m(2)) 1 Kidney damage with normal or decreased GFR 90 2 Kidney damage with mild decrease in GFR 60-89 3 Moderate decrease in GFR 30-59 4 Severe decrease in GFR 15-29 5 Kidney failure <15 (or dialysis) 19 FINAL: NO GROWTH DAY 2 (<1,000 CFU/mL) 20 NEGATIVE FOR GROUP A BETA STREPTOCOCCUS 21 NEGATIVE FOR GROUP A BETA STREPTOCOCCUS 22 CHOLESTEROL INTERPRETATION: Desirable: Less than 200 MG/DL Borderline-High Risk: 200-239 MG/DL High-Risk: 240 MG/DL and over 23 HDL INTERPRETATION: Undesirable: High Risk: Less than 40 MG/DL Desirable: Low Risk: Greater than 60 MG/DL 24 LDL INTERPRETATION: Low Risk Optimal Level: LDL Less than 100 MG/DL Near or Above Optimal: LDL 100-129 MG/DL Borderline High Risk: LDL 130-159 MG/DL High Risk: LDL 160-189 MG/DL Very High Risk: LDL Greater than 189 MG/DL 25 NEGATIVE FOR GROUP A STREP 26 NEGATIVE FOR GROUP A STREP 27 Anion gap measurement may be of limited value in the presence of any alkalosis, especially in a combined acid base disorder. . Procedures Date CPT Code Description Status Comment 08/02/2016 04575 Remove Impact Cerumen Completed Requiring Instrument, Unilateral 02/13/2016 34303 Remove Impact Cerumen Completed Irrigation/Lavage Unilateral 03/23/2013 29204 Destruction Of Skin Lesions Completed Up To 14 Flat Warts/Molluscum Contag 10/24/2011 Colonoscopy Completed int hemorrhoids, otherwise normal visually; Bx (+) for microscopic (lymphocytic) colitis 04/04/2011 43145 Remove Impact Cerumen Completed Requiring Instrument, Unilateral 01/25/2009 0 Payment Completed Encounters Type Date Location Provider CPT E/M Dx Office Visit 06/02/2018 2:30p Main Office Kiran Baldwin M.D. 72406 M54.2 Office Visit 04/13/2018 11:00a Main Office Kiran Baldwin M.D. 26864 F41.9 F34.1 Office Visit 01/05/2018 11:45a Main Office Kiran Baldwin M.D. 63830 F41.9 Office Visit 10/27/2017 12:55p Main Office Kiran Baldwin M.D. 09808 F41.9 F34.1 K52.839 Z79.899 Office Visit 08/04/2017 4:00p Main Office Alivia Cuello 16038 R10.11 K52.839 Office Visit 04/25/2017 9:15a Main Office Kiran Baldwin M.D. 42922 F41.9 F34.1 R53.83 Office Visit 03/04/2017 3:00p Main Office Kiran Baldwin M.D. 36326 R20.8 F41.9 Office Visit 10/23/2016 8:30a Main Office Kiran Baldwin M.D. 56977 F34.1 F41.9 D64.9 Office Visit 08/19/2016 4:15p Main Office Kiran Baldwin M.D. 56478 R19.5 F34.1 F41.9 Office Visit 08/02/2016 3:25p Main Office Bennie Kennedy M.D. 49459 H61.21 K52.839 H60.11 Office Visit 04/22/2016 8:55a Main Office Kiran Baldwin M.D. 13980 F34.1 F41.9 L81.1 Office Visit 02/13/2016 1:45p Main Office Kiran Baldwin M.D. 51513 H61.21 H92.01 Office Visit 12/27/2015 2:30p Main Office Kiran Baldwin M.D. 87543 R59.0 Office Visit 10/23/2015 8:55a Main Office Kiran Baldwin M.D. 12416 F34.1 F41.9 J31.0 Office Visit 09/13/2015 4:00p Main Office Kiran Baldwin M.D. 75276 J31.0 Office Visit 07/04/2015 4:00p Main Office Kiran Baldwin M.D. 89142 F34.1 F41.9 K59.00 Office Visit 06/06/2015 12:55p Main Office Kiran Baldwin M.D. 71507 300.4 300.00 V04.81 V07.0 Office Visit 04/21/2015 8:55a Main Office Kiran Baldwin M.D. 60975 300.4 558.9 Office Visit 10/21/2014 8:55a Main Office Kiran Baldwin M.D. 89038 300.4 787.91 Office Visit 04/20/2014 8:30a Main Office Kiran Baldwin M.D. 48711 300.4 787.91 Office Visit 10/20/2013 8:30a Main Office Kiran Baldwin M.D. 09563 300.4 787.91 558.9 Office Visit 04/14/2013 8:45a Main Office Kiran Baldwin M.D. 79996 300.4 787.91 558.9 780.52 Office Visit 03/23/2013 1:30p Main Office Kiran Baldwin M.D. 91486 078.12 706.2 Office Visit 10/14/2012 4:00p Main Office Kiran Baldwin M.D. 05189 300.4 787.91 558.9 Office Visit 04/10/2012 9:30a Main Office Kiran Baldwin M.D. 29929 300.4 787.91 558.9 Office Visit 10/08/2011 10:00a Main Office Kiran Baldwin M.D. 80336 300.4 787.91 Office Visit 07/01/2011 4:15p Main Office Kiran Baldwin M.D. 71563 787.91 Office Visit 06/03/2011 11:00a Main Office Kiran Baldwin M.D. 93469 787.91 Office Visit 04/16/2011 12:55p Main Office Kiran Baldwin M.D. 31651 300.4 Office Visit 04/04/2011 10:15a Main Office Bennie Kennedy M.D. 37182 380.4 388.70 389.9 Office Visit 01/11/2011 1:00p Main Office Alivia Cuello 21876 381.01 465.9 Office Visit 10/16/2010 4:30p Main Office Kiran Baldwin M.D. 85061 300.4 381.81 Office Visit 04/13/2010 2:30p Main Office Kiran Baldwin M.D. 82755 300.4 Office Visit 10/25/2009 9:30a Main Office Kiran Baldwin M.D. 97380 300.4 V04.81 Office Visit 09/13/2009 10:45a Main Office Kiran Baldwin M.D. 09379 300.4 Office Visit 05/30/2009 4:30p Main Office Kiran Baldwin M.D. 88129 300.4 V77.91 Office Visit 11/30/2008 4:15p Main Office Kiran Baldwin M.D. 35153 300.4 Office Visit 06/01/2008 8:55a Main Office Kiran Baldwin M.D. 38396 300.4 706.1 Office Visit 12/02/2007 10:45a Main Office Kiran Baldwin M.D. 92098 300.4 Office Visit 05/29/2007 9:15a Main Office Kiran Baldwin M.D. 13412 300.4 Office Visit 11/28/2006 2:45p Main Office Kiran Baldwin M.D. 74370 300.4 Office Visit 07/25/2006 9:30a Main Office kayla 28346 719.46 Office Visit 06/25/2006 4:15p Main Office kayla 98783 719.46 Office Visit 05/23/2006 8:55a Main Office Kiran Baldwin M.D. 40168 293.84 300.4 V06.1 Office Visit 03/26/2006 1:15p Main Office Kiran Baldwin M.D. 26996 788.41 724.5 293.84 300.4 Office Visit 03/18/2006 4:30p Main Office Kiran Baldwin M.D. 01355 300.4 293.84 Office Visit 01/10/2006 3:00p Main Office Kiran Baldwin M.D. 23244 703.9 703.9 703.9 Office Visit 12/13/2005 2:45p Main Office Kiran Baldwin M.D. 12883 300.4 293.84 Office Visit 11/18/2005 2:45p Main Office Kiran Baldwin M.D. 07325 300.4 293.84 Office Visit 07/22/2005 2:00p Main Office Kiran Baldwin M.D. 38525 448.1 700 Office Visit 09/05/2003 2:15p Main Office Kiran Baldwin M.D. 93333 784.0 Plan of Care Future Appointment(s):10/14/2018 9:15 am - Kiran Baldwin M.D. at Main Yazczb2706/02/2018 - Kiran Baldwin M.D.M54.2 CervicalgiaNew Medication:PT For Neck PainComments:Advised chin tucks sets of 10 every hour or two until better then QD and increase for flares. If notimproved by next week she will see PT. If persistent probelms she will let me know and will arrange MRI then f/u.
[2018-06-25 18:06] VITALS: BP 149/82
--- NOTE | 2018-06-25 18:47 | UC ---
Bite Injury/Animal HPI - HPI Summary HPI Summary: 47 y/o female presents to the urgent care c/o While trying to catch a cat two hours ago, various cat scratches mostly to right arm and two superficial scratches on right leg. Patient has been in her neighborhood for one year, has dental/facial swelling, and she was attempting to bring [facility] to the [facility]. All scratches irrigated and abrasions cleansed with a total of 500mL NS. - History of Current Complaint Chief Complaint: UCLaceration Stated Complaint: CAT SCRATCH Time Seen by Provider: 06/25/18 18:46 Hx Obtained From: Patient Hx Last Menstrual Period: NONE Pain Intensity: 5 - Allergies/Home Medications Allergies/Adverse Reactions: Allergies Allergy/AdvReac Type Severity Reaction Status Date / Time clavulanic acid AdvReac bloating Verified 06/25/18 19:19 [From Augmentin] PMH/Surg Hx/FS Hx/Imm Hx - Surgical History Surgical History: Yes Surgery Procedure, Year, and Place: Hysterectomy, , [place]; Cholecystectomy, 1997, [place] - Family History Known Family History: Positive: None, Diabetes, Respiratory Disease - COPD Negative: Hypertension - Social History Alcohol Use: Rare Substance Use Type: None Smoking Status (MU): Never Smoked Tobacco - Immunization History Most Recent Tetanus Shot: 01/23/14 Physical Exam Vital Signs: Initial Vital Signs Temp 97.7 F 06/25/18 17:59 Pulse 60 06/25/18 17:59 Resp 14 06/25/18 17:59 BP 149/82 06/25/18 17:59 Pulse Ox 100 06/25/18 17:59 Bite Injury Course/Dx - Differential Dx/Diagnosis Differential Diagnosis/HQI/PQRI: Laceration, Puncture, Rabies Exposure, Superficial Infection Provider Diagnoses: 1- RT forearm cat scratch. 2- Elevated BP w/o Hx ob HTN Discharge - Sign-Out/Discharge Documenting (check all that apply): Patient Departure - D/C home All imaging exams completed and their final reports reviewed: No Studies - Discharge Plan Condition: Stable Disposition: HOME Prescriptions: Amoxicillin/Clavulanate TAB* [Augmentin TAB 875*] 875 mg PO BID #20 tab Bacitracin OINTMENT* 1 applic TOPICAL BID #1 tube Patient Education Materials: Animal Bite (ED), Low-Sodium Diet (ED) Referrals: Kiran Baldwin MD [Primary Care Provider] - 3 Days Additional Instructions: 1-Please take full course of Antibiotic. Since Augmenting gives you bloating please take yogurt w/ probiotics or culturelle and drink hot water to alleviate symptoms 2- If redness and swelling doubles in size after 48 hrs of taking antibiotic and fever develops please go to the ER immediately. 3-Avoid flexing your Rt arm too much keep wound clean and dry. Apply Bacitracin oint over affected areas as directed 4- Please contact the Health Department or go to the ER for the rabies prophlaxis since cat can't be tested or observed. 5-Please F/u with your PCP in 3 days if not improvement of symptoms for further evaluation and treatment. 6-Your BP is elevated today. please decrease salt in your diet, monitor BP and if it continues to be elevated please f/u with your PCP for further management - Billing Disposition and Condition Condition: STABLE Disposition: Home
[2018-06-25] MEDS ORDERED: Tetan/Diph/Pertus SYR(Tdap)* 0.5 ML SYR(BOOSTRIX) use SYR IM ONE (19:17)
== END 2018-06-25 19:36 | disposition home or self-care (01) ==
LOC: UCCORT 17:22
DX: S40.811A Abrasion of right upper arm, initial encounter (principal); W55.03XA Scratched by cat, initial encounter; Y93.9 Activity, unspecified; Y92.9 Unspecified place or not applicable; R03.0 Elevated blood-pressure reading, without diagnosis of hypertension; Z88.8 Allergy status to other drugs, medicaments and biological substances
CPT/HCPCS: 90471; 90715; 99212; G0463

== ENCOUNTER 2019-12-24 18:58 | Emergency (ER) | payer BC ==
--- OUTSIDE RECORDS SUMMARY | 2019-12-24 19:16 | XMS REPORT | Continuity of Care Document ---
:1970 External Reference #:[id number] Author Name Kiran Baldwin M.D. Address [address] [place] [address] Problems Active Problems Provider Date Dysthymia Kiran aBldwin M.D. Onset: 04/16/2011 Dysthymic disorder Kiran Baldwin M.D. Onset: 07/04/2015 Anxiety state Kiran Baldwin M.D. Onset: 07/04/2015 Social History Type Date Description Comments Sex Unknown Tobacco Use Start: Unknown Tobacco Of Any Kind Denies Use Tobacco Use Start: Unknown Denies Cigarette Use Smoking Status Reviewed: 11/20/18 Denies Cigarette Use ETOH Use Rare Alcohol Use Recreational Drug Use Never Used Drugs Tobacco Use Start: Unknown Patient has never smoked Allergies, Adverse Reactions, Alerts Description No Known Drug Allergies Medications Active Medications SIG Qnty Indications Ordering Provider Date Estradiol 1 tab per day 90tabs N95.9 Kiran Baldwin, 06/17/2019 0.5mg Tablets M.D. N95.1 Clonazepam 1/2-1 by mouth up 30tabs F41.9 Kiran Baldwin, 03/04/2017 0.5mg Tablets to three times a M.D. day as needed for anxiety Lexapro take 1 tablet by 90tabs F06.4 Kiran Baldwin, 04/22/2016 20mg Tablets mouth every day; M.D. for mood F34.1 F41.9 History Medications One-A-Day Womens 1 po daily Kiran Baldwin, 06/14/2019 - Petites M.D. 07/11/2019 Tablets Adrenal Response w/sensoril and Kiran Baldwin, 06/14/2019 - ashwagandha M.DQuincy 10/25/2019 Medications Administered in Office Medication SIG Qnty Indications Ordering Provider Date H1N1 Swine Flu Vaccine Kiran Baldwin M.D. 10/25/2009 Injection Immunizations CPT Code Status Date Vaccine Lot # [id number] Given 07/12/2019 Influenza Virus Vaccine, Quadrivalent, Split, [id number] Preservative Free 65440 Given 08/06/2018 Influenza Virus Vaccine, Quadrivalent, Split, Preservative Free U-Flu Given 08/01/2017 Influenza,Unspecified 66405 Given 07/19/2016 Flu, Split Virus 3Yrs 05432 Given 06/06/2015 Influenza Virus Vaccine, Quadrivalent, Split, [id number] Preservative Free 00988 Given 07/15/2014 Flu, Split Virus 3Yrs 27341 Given 01/23/2014 Adacel or Boostrix, TDaP 56155 Given 07/16/2013 Flu, Split Virus 3Yrs 32293 Given 09/08/2012 Flu, Split Virus 3Yrs [id number] 32558 Given 09/05/2010 Flu, Split Virus 3Yrs [id number] 71853 Given 05/23/2006 Adacel or Boostrix, TDaP [id number] U-Flu Given Unknown Influenza,Unspecified Vital Signs Date Vital Result Comment 10/26/2019 8:48am BP Systolic 132 mmHg BP Diastolic 80 mmHg Height 63 inches 5'3" Weight 138.50 lb BMI (Body Mass Index) 24.5 kg/m2 07/12/2019 3:24pm BP Systolic 120 mmHg BP Diastolic 78 mmHg Height 63 inches 5'3" Weight 138.00 lb BMI (Body Mass Index) 24.4 kg/m2 Results Test Acquired Date Facility Test Result H/L Range Note Laboratory test 06/15/2019 [facility] Progesterone 0.3 ng/mL 1, 2 finding [phone] TSH (Thyroid Stim Horm) 2.69 mcIU/mL Normal 0.34-5.60 3 FSH (Follicle Stim Hormone) 78.2 mIU/mL 4 LH (Lutenizing Hormone) 35.0 mIU/mL 5 Fractionated Estrogens 06/15/2019 [facility] Estrone (E1) 24 pg/mL 6 [phone] Estradiol (E2) <10 pg/mL 7 1 [id number] 2 Female reference ranges for Progesterone: Follicular phase.......0.3 - 1.5 ng/ml Mid-luteal phase.......5.2 - 18.5 ng/ml Postmenopausal.........< 0.8 ng/ml 1st trimester.........4.7 - 50.0 ng/ml 2nd trimester.........19.4 - 45.3 ng/ml 3 [id number] 4 Normally menstruating females - Follicular phase 3 - 9 - Mid-cycle peak 4 - 23 - Luteal phase 1 - 6 Postmenopausal females 16 - 114 5 Normally menstruating females - Follicular Phase 1 - 18 - Mid-Cycle Peak 24 - 105 - Luteal Phase 0.6 - 20 Postmenopausal females 15 - 62 6 REFERENCE VALUE Premenopausal :17-200 Postmenopausal : 7-40 ADDITIONAL INFORMATION This test was developed and its performance characteristics determined by [facility] in a manner consistent with CLIA requirements. This test has not been cleared or approved by the U.S. Food and Drug Administration. 7 REFERENCE VALUE Premenopausal: 15-350 (E2 levels vary widely through the menstrual cycle.) Postmenopausal: <10 ADDITIONAL INFORMATION This test was developed and its performance characteristics determined by [facility] in a manner consistent with CLIA requirements. This test has not been cleared or approved by the U.S. Food and Drug Administration. Test Performed by: [facility] [address] [place] [address] Composite Science Teacher: Ervin Paz M.D. Ph.D.; CLIA# [id number] Procedures Date Code Description Status 08/12/2019 [id number] Mammogram Completed 10/24/2011 [id number] Colonoscopy Completed Medical Devices Description No Information Available Encounters Type Date Location Provider Dx Diagnosis Office Visit 10/26/2019 Main Office Kiran Baldwin F41.9 Anxiety disorder, 8:30a M.DQuincy unspecified F34.1 Dysthymic disorder Z23 Encounter for immunization Z68.24 Body mass index (BMI) 24.0-24.9, adult Office Visit 07/12/2019 3:00p Main Office Kiran Baldwin F41.9 Anxiety disorder, M.DQuincy unspecified F34.1 Dysthymic disorder N95.1 Menopausal and female climacteric states M54.2 Cervicalgia Z23 Encounter for immunization Z41.8 [facility] Body mass index (BMI) 24.0-24.9, adult Office Visit 06/17/2019 3:20p Main Office Glendy Arzate N95.9 Unspecified P.A. menopausal and perimenopausal disorder Office Visit 06/15/2019 1:40p Main Office Glendy Arzate N95.9 Unspecified P.A. menopausal and perimenopausal disorder R45.4 Irritability and anger Z71.89 Other specified counseling Assessments Date Code Description Provider 10/26/2019 F41.9 Anxiety disorder, unspecified Kiran Baldwin M.D. 10/26/2019 F34.1 Dysthymic disorder Kiran Baldwin M.D. 10/26/2019 Z23 Encounter for immunization Kiran Baldwin M.D. 10/26/2019 Z68.24 Body mass index (BMI) 24.0-24.9, adult Kiran Baldwin M.D. 07/12/2019 F41.9 Anxiety disorder, unspecified Kiran Baldwin M.D. 07/12/2019 F34.1 Dysthymic disorder Kiran Baldwin M.D. 07/12/2019 N95.1 Menopausal and female climacteric states Kiran Baldwin M.D. 07/12/2019 M54.2 Cervicalgia Kiran Baldwin M.D. 07/12/2019 Z23 Encounter for immunization Kiran Baldwin M.D. 07/12/2019 Z41.8 Encounter for other procedures for purposes Kiran Baldwin M.D. other than remedying health state 07/12/2019 Z68.24 Body mass index (BMI) 24.0-24.9, adult Kiran Baldwin M.D. 06/17/2019 N95.9 Unspecified menopausal and perimenopausal Glendy Arzate P.AQiuncy disorder 06/15/2019 N95.9 Unspecified menopausal and perimenopausal Glendy Arzate P.AQuincy disorder 06/15/2019 R45.4 Irritability and anger Glendy Arzate P.AQuincy 06/15/2019 Z71.89 Other specified counseling Alivia Cuello Plan of Treatment Future Appointment(s):04/26/2020 10:30 am - Radiology, Dexa & X-Ray at Main Doyblq4804/26/2020 11:15 am - Kiran Baldwin M.D. at Main Erixcf0206/17/2019 - Alivia CuelloN95.9 Unspecified menopausal and perimenopausal disorderNew Medication:Estradiol 0.5 mg - 1 tab per day Functional Status Description No Information Available Mental Status Description No Information Available Referrals Description No Information Available
[2019-12-24 19:23] VITALS: BP 152/95
--- NOTE | 2019-12-24 19:43 | UC ---
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 Pt had white spots on her tonsills, intermittent chills. 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 co-worker and her dtr tested + for strep yesterday -sx started slight 12/19 and worsened today -no swollen glands. no cough, no runny nose. -no known fever - temp 97 - History of Current Complaint Chief Complaint: UCGeneralIllness Stated Complaint: SORE THROAT, RASH/EYE COMPLAINT Time Seen by Provider: 12/24/19 19:36 Hx Last Menstrual Period: NONE Pain Intensity: 2 - Allergies/Home Medications Allergies/Adverse Reactions: Allergies Allergy/AdvReac Type Severity Reaction Status Date / Time clavulanic acid AdvReac bloating Verified 12/24/19 19:19 [From Augmentin] Home Medications: Home Medications Escitalopram Oxalate [Lexapro 20 mg] 20 mg PO DAILY 02/03/18 [History Confirmed 12/24/19] clonazePAM TAB(*) [KlonoPIN TAB(*)] 0.5 mg PO TID PRN 12/24/19 [History Confirmed 12/24/19] PMH/Surg Hx/FS Hx/Imm Hx Previously Healthy: Yes - Surgical History Surgical History: Yes Surgery Procedure, Year, and Place: Hysterectomy, , [place];. Cholecystectomy, 1997, [place] - Family History Known Family History: Positive: None, Diabetes, Respiratory Disease - COPD Negative: Hypertension - Social History Alcohol Use: Rare Substance Use Type: None Smoking Status (MU): Never Smoked Tobacco - Immunization History Most Recent Tetanus Shot: 01/23/14 Hx Tetanus, Diphtheria Vaccination: Yes Review of Systems All Other Systems Reviewed And Are Negative: Yes Constitutional: Positive: Negative. Negative: Fever, Chills, Fatigue Skin: Positive: Negative, Rash - rt eye lis corner x sevberal months that improves w/ consistent aquaphor usage. returns when stopped Eyes: Positive: Negative. Negative: Drainage, Eye Redness, Photophobia ENT: Positive: Sore Throat, Ear Ache. Negative: Nasal Discharge, Sinus Congestion, Sinus Pain/Tenderness Respiratory: Positive: Negative. Negative: Shortness Of Breath, Cough Cardiovascular: Positive: Negative. Negative: Palpitations, Chest Pain Gastrointestinal: Positive: Negative Genitourinary: Positive: Negative Motor: Positive: Negative Neurovascular: Positive: Negative Musculoskeletal: Positive: Negative Neurological/Mental Status: Positive: Negative Psychological: Positive: Negative Is Patient Immunocompromised?: No Physical Exam Triage Information Reviewed: Yes Appearance: Well-Appearing, No Pain Distress, Well-Nourished - very pleasant, good historain Vital Signs: Initial Vital Signs Temp 97.8 F 12/24/19 19:19 Pulse 55 12/24/19 19:19 Resp 16 12/24/19 19:19 BP 152/95 12/24/19 19:19 Pulse Ox 100 12/24/19 19:19 Vital Signs Reviewed: Yes Eye Exam: Normal Eyes: Positive: Conjunctiva Clear, Other: - minimal dry appearing flesh colored skin, rt lateral upper lid ENT: Positive: Pharyngeal erythema - mild., TMs normal, Uvula midline. Negative : Nasal congestion, Nasal drainage, TM bulging, TM dull, TM red, Tonsillar swelling, Tonsillar exudate, Sinus tenderness Neck exam: Normal Neck: Positive: Supple, Nontender, No Lymphadenopathy Respiratory Exam: Normal Respiratory: Positive: Chest non-tender, Lungs clear, Normal breath sounds, No respiratory distress, No accessory muscle use. Negative: Crackles, Rhonchi, Stridor, Wheezing Cardiovascular Exam: Normal Cardiovascular: Positive: RRR, No Murmur, Pulses Normal Abdominal Exam: Normal Abdomen Description: Positive: Nontender, Soft Musculoskeletal Exam: Normal Neurological Exam: Normal Psychological Exam: Normal Skin Exam: Normal Throat Pain/Nasal Course/Dx - Course Course Of Treatment: strep neg -no e/o bacterial infection -likely viral -fluids, rest, APAP/IB -f/u w/ pcp if sx increase or perisst - Differential Dx/Diagnosis Differential Diagnosis/HQI/PQRI: Laryngitis, Pharyngitis, Tonsillitis, URI Provider Diagnosis: Pharyngitis Discharge ED - Sign-Out/Discharge Documenting (check all that apply): Patient Departure All imaging exams completed and their final reports reviewed: No Studies - Discharge Plan Condition: Stable Disposition: HOME Patient Education Materials: Pharyngitis (ED) Referrals: Kiran Baldwin MD [Primary Care Provider] - Additional Instructions: strep is negative. -follow up with your PCP if symptoms increase, change or persist. -Luckily you will be home from school for the enxt few days - Billing Disposition and Condition Condition: STABLE Disposition: Home
== END 2019-12-24 20:11 | disposition home or self-care (01) ==
LOC: UCCORT 18:58
DX: J02.9 Acute pharyngitis, unspecified (principal); H92.09 Otalgia, unspecified ear; Z88.0 Allergy status to penicillin
CPT/HCPCS: 87651; 99211; G0463